=== PATIENT | male | born 1945 | race Caucasian/White ===

== ENCOUNTER 2020-08-12 01:52 | Outpatient (CLI) | payer MEDICARE, SELFPAY ==
[2020-08-12 18:37] LABS: SARS-CoV-2 RNA PCR Negative
== END 2020-08-12 01:53 | disposition home or self-care (01) ==
LOC: ANHCOVIDDT 01:52
PROVIDERS: PCP Family Medicine; Visit Provider Internal Medicine Gastroenterology
DX: Z01.812 Encounter for preprocedural laboratory examination (principal); Z20.822 Contact with and (suspected) exposure to COVID-19
CPT/HCPCS: C9803; U0003; U0005

== ENCOUNTER 2020-08-15 00:42 | Day surgery (SDC) | payer MEDICARE, SELFPAY ==
[2020-08-01 11:20] VITALS: BMI 30.5
[2020-08-15 08:04] VITALS: BP 143/79; PULSE 63; RESP 16; TEMP 36.3; O2SAT 63; BMI 30.3
[2020-08-15] MEDS: LACTATED RINGERS 1,000 ML 150 ML IV CONT (08:23)
[2020-08-15 08:28] LABS: Glucose Point of Care 162 (65-105)
--- NOTE | 2020-08-15 08:40 | WPDANESEPPF ---
Anes - Initial Pre Proc Eval Procedure: Operation Date: 08/15/20 08:30 Proposed Procedures p Screening Colonoscopy - Cesar Woodson MD Date/Time: 08/15/20 08:40 Surgeon: Cesar Woodson MD Pre Op Diagnosis: neoplasm screening Patient Data Age: 75 Gender: M Height: 6 ft 1 in Weight: 104.3 kg Last Vital Signs Temp 97.4 F L 08/15/20 08:04 Pulse 63 08/15/20 08:04 Resp 16 08/15/20 08:04 BP 143/79 H 08/15/20 08:04 Pulse Ox 63 L 08/15/20 08:04 Allergies Allergy/AdvReac Type Severity Reaction Status Date / Time Sulfa (Sulfonamide Allergy Intermediate Hives Verified 08/15/20 08:02 Antibiotics) acetaminophen AdvReac Mild COUGHING Verified 08/15/20 08:02 Home Medications Medication Instructions Recorded Confirmed Type loratadine 10 mg tablet 10 mg PO DAILY 07/12/19 08/01/20 History simvastatin 40 mg tablet 40 mg PO DAILY #90 tablet 05/01/20 08/15/20 Rx sodium,potassium,mag sulfates 17.5 See Rx Instructions PO .COMPLEX 06/30/20 Rx gram-3.13 gram-1.6 gram oral soln #354 ml metformin 500 mg tablet 1,000 mg PO BID #360 tablet 07/07/20 08/15/20 Rx Laboratory Tests 08/15/20 08:09 POC Capillary Glucose 162 mg/dl H mg/dl (65-105) Patient hx anesthesia problems: none Family hx anesthesia problems: none PMFSH Past Medical History Medical History (Updated 08/15/20 @ 08:45 by Cesar Woodson MD) Colon polyp DM w/o complication type II, uncontrolled Erectile dysfunction Pure hypercholesterolemia Family History Family History (Updated 03/21/14 @ 07:13 by DOCTOR UNKNOWN) Father Family history of coronary artery disease Social History Social History (Updated 04/21/20 @ 13:40 by Kary Saucedo) Smoking status: Never smoker Second hand tobacco smoke exposure: No Alcohol intake: never Drinks per week: 1 Substance use: never Substance use type: does not use Living arrangements: with family Gender identity (if verbalized by the patient): Male Spiritual care concerns: No Anes - Eval Final PreProcedure Day of Procedure 08/15/20 08:40 Patient weight: overweight Heart: regular rate and rhythm Lungs: clear to auscultation Airway: Mallampati scale class II Neurological: alert and oriented Last oral intake: >/= 8 hours ASA classification: III Emergent: no Anesthetic plan: proceed Anesthesia type and monitoring: general GIVS and standard monitoring Informed Consent: The patient's anesthetic plan and its attendant risks and benefits were discussed with the patient/family/POA. Questions were solicited and answers provided to the satisfaction of the patient/family/POA.
--- NOTE | 2020-08-15 08:44 | PM.HPGS ---
History of Present Illness History of Present Illness Consent: Risks, benefits, and alternatives have been discussed and questions answered. Patient agrees to proceed with procedure. Chief complaint: neoplasm screening Narrative: Black Echols is a 75 year old male with colon polyps 10 years ago, last colonoscopy about 5 years ago. Review of Systems Constitutional: Constitutional: Denies headache(s) and Denies weakness Eyes: Eyes: Denies blurry vision ENT: Reports Normal hearing present, Denies headache(s) and Denies neck pain Cardiovascular: Cardiovascular: Denies chest pain and Denies dyspnea Respiratory: Respiratory: Denies dyspnea Gastrointestinal: Gastrointestinal: Reports no additional gastrointestinal complaints Genitourinary: Genitourinary: Denies dysuria Musculoskeletal: Musculoskeletal: Denies neck pain Integumentary/Breasts: Skin/Breast: Denies dry skin Neurologic: Reports Normal hearing present, Denies headache(s) and Denies weakness Psychiatric: Psychiatric: Denies anxiety Endocrine: Endocrine: Denies change in body appearance Hematologic/Lymphatic: Hematologic/Lymphatic: Denies easy bleeding Allergic/Immunologic: Allergic/Immunologic: Denies urticaria PMFSH Past Medical History Medical History (Updated 08/15/20 @ 08:45 by Cesar Woodson MD) Colon polyp DM w/o complication type II, uncontrolled Erectile dysfunction Pure hypercholesterolemia Family History Family History (Updated 03/21/14 @ 07:13 by DOCTOR UNKNOWN) Father Family history of coronary artery disease Social History Social History (Updated 04/21/20 @ 13:40 by Kary Saucedo) Smoking status: Never smoker Second hand tobacco smoke exposure: No Alcohol intake: never Drinks per week: 1 Substance use: never Substance use type: does not use Living arrangements: with family Gender identity (if verbalized by the patient): Male Spiritual care concerns: No Meds Home Medications and Allergies Home Medications Medication Instructions Recorded Confirmed Type loratadine 10 mg tablet 10 mg PO DAILY 07/12/19 08/01/20 History simvastatin 40 mg tablet 40 mg PO DAILY #90 tablet 05/01/20 08/15/20 Rx sodium,potassium,mag sulfates 17.5 See Rx Instructions PO .COMPLEX 06/30/20 Rx gram-3.13 gram-1.6 gram oral soln #354 ml metformin 500 mg tablet 1,000 mg PO BID #360 tablet 07/07/20 08/15/20 Rx Allergies Allergy/AdvReac Type Severity Reaction Status Date / Time Sulfa (Sulfonamide Allergy Intermediate Hives Verified 08/15/20 08:02 Antibiotics) acetaminophen AdvReac Mild COUGHING Verified 08/15/20 08:02 Vital Signs Vital Signs - 24 hr 08/15/20 08:04 Temperature 97.4 F L Pulse Rate 63 Respiratory Rate 16 Blood Pressure 143/79 H Pulse Oximetry 63 L Exam Const: General: comfortable and no acute distress HENMT: General nose exam: Normal nares present Eyes: General: appearance normal, both eyes and all related structures Neck: Neck: no JVD Resp: Auscultation: clear to auscultation bilaterally Cardio: Rate: regular rate Rhythm: regular rhythm GI: Inspection: non-distended GI Palp: Yes Soft to palpation Skin: General skin exam: normal color Neuro: General: gait normal Speech: normal speech Extrem: General: normal to inspection Psych: Mental Status: mental status grossly normal Assessment and Plan Assessment and plan (1) Colon polyp: Code(s): K63.5 - Polyp of colon Status: Acute Assessment and Plan: will proceed with colonoscopy
[2020-08-15 09:09] VITALS: BP 106/54; PULSE 58; RESP 16; O2SAT 97
[2020-08-15 09:19] VITALS: BP 135/77; PULSE 57; RESP 18; O2SAT 96
[2020-08-15 09:29] VITALS: BP 138/81; PULSE 58; RESP 22; O2SAT 96
== END 2020-08-15 09:44 | disposition home or self-care (01) ==
PROVIDERS: PCP Family Medicine; Visit Provider Internal Medicine Gastroenterology
PROC: 0DJD8ZZ Inspection of Lower Intestinal Tract, Via Natural or Artificial Opening Endoscopic (ICD-10-PCS; CPT 45378; principal; 2020-08-15 08:30)
DX: Z12.11 Encounter for screening for malignant neoplasm of colon (principal); K57.30 Diverticulosis of large intestine without perforation or abscess without bleeding; K64.8 Other hemorrhoids; Z86.010 Personal history of colon polyps; E11.9 Type 2 diabetes mellitus without complications; E78.00 Pure hypercholesterolemia, unspecified; Z79.84 Long term (current) use of oral hypoglycemic drugs
CPT/HCPCS: G0105; C9803; J2704; J7120; U0003; U0005

== ENCOUNTER 2024-12-25 16:43 | Outpatient (CLI) | payer MEDICARE, SELFPAY ==
[2024-12-25 17:09] LABS: Basophils Percent Auto 0.6 % (0.2-1.2); Eosinophils Percent Auto 0.4 % (0-4.4); Hematocrit 41.6 % (42.0-52.0); Hemoglobin 13.8 g/dL (14.0-18.0); Immature Granulocyte Absolute 0.02 K/mm3 (0.00-0.031); Immature Granulocyte Percent A 0.4 % (0-0.5); Immature Platelet Fraction Pct 3.4 % (0.9-11.2); Lymphocytes Absolute Auto 1.54 K/mm3 (0.9-3.2); Lymphocytes Percent Auto 29.2 % (18.3-44.2); Mean Corpuscular HGB Conc 33.2 g/dl (32-36); Mean Corpuscular Hemoglobin 31.6 pg (26-34); Mean Corpuscular Volume 95.2 fl (80-100); Mean Platelet Volume 9.9 fl (7.4-10.4); Monocytes Absolute Auto 0.3 K/mm3 (0.1-0.6); Monocytes Percent Auto 6.3 % (2.6-8.5); Neutrophils Absolute Auto 3.3 K/mm3 (1.3-6.7); Neutrophils Percent Auto 63.1 % (45.5-73.1); Platelet Count Result 142 k/mm3 (150-375); Red Blood Count 4.37 M/mm3 (4.6-6.20); Red Cell Distribution Width 12.8 % (11.5-14.5); White Blood Count 5.3 K/mm3 (4.5-10.0)
[2024-12-25 17:15] LABS: Alanine Aminotransferase 34 U/L (6-50); Albumin Level 4.8 g/dL (3.5-5.1); Alkaline Phosphatase 29 U/L (38-126); Anion Gap 9 mmol/L (4-12); Aspartate Amino Transferase 41 U/L (17-59); Blood Urea Nitrogen 14 mg/dL (9-20); Calcium 9.6 mg/dL (8.4-10.2); Carbon Dioxide 27 mmol/L (22-30); Chloride 102 mmol/L (98-107); Estimated Glomerular Filt Rate > 60; Glucose 198 mg/dL (65-110); Lipase 94 U/L (23-300); Potassium 3.9 mmol/L (3.4-5.0); Sodium 138 mmol/L (137-145); Total Protein 7.5 g/dL (6.3-8.2)
[2024-12-25 17:29] LABS: Add Urine Microscopic? YES; Appearance Urine Clear (Clear); Bacteria Urine None Seen /hpf; Bilirubin Urine Negative (Negative); Blood Urine Negative (Negative); Color Urine Dark Yellow (Yellow); Glucose Urine UA Negative (Negative); Ketones Urine 1+ mg/dL (Negative); Leukocyte Esterase Ur Negative LEU/UL (Negative); Nitrate Urine Negative (Negative); Non Pathogenic Casts 0-2; Protein Urine Trace mg/dL (Negative); RBC Urine 0-2 /hpf (0-2); Specific Grav Ur 1.029 (1.001-1.035); Squamous Epithelial Cell Urine None Seen /hpf (Few); WBC Urine 0-5 /hpf (0-3); pH Urine 5.5 (5.0-9.0)
== END 2024-12-25 16:44 | disposition home or self-care (01) ==
LOC: ANHLAB 16:47
PROVIDERS: PCP Family Medicine; Visit Provider Physician Assistant
DX: R11.0 Nausea (principal); R53.1 Weakness
CPT/HCPCS: 36415; 80053; 81001; 83690; 85025; 85055

== ENCOUNTER 2025-01-02 14:07 | Outpatient (CLI) | payer MEDICARE, SELFPAY ==
--- NOTE | ~2025-01-02 | CT_ITS ---
Non-contrast Head CT History: Dizziness and giddiness Technique: Axial non-contrast imaging of the brain was performed. Dose reduction technique was used on this scan by utilizing automated exposure control and iterative reconstruction technique. The dose -length product (DLP) was 605.33 mGy-cm. Findings: There is no evidence of intracranial hemorrhage, mass lesion, or acute infarct. Probable m inimal chronic microvascular ischemic changes in the periventricular white matter. The ventricles an d subarachnoid spaces are normal in size. The calvarium appears normal. The visualized paranasal si nuses and mastoid air cells are clear. Impression: No acute abnormality seen. Probable minimal chronic microvascular ischemic change in the periventricular white matter. Reviewed, dictated and finalized at location M. Impression: No acute abnormality seen. Probable minimal chronic microvascular ischemic change in the periventricular w lupe matter.
== END 2025-01-02 14:08 | disposition home or self-care (01) ==
PROVIDERS: PCP Family Medicine; Visit Provider Physician Assistant
DX: R42 Dizziness and giddiness (principal); R26.81 Unsteadiness on feet; R53.1 Weakness
CPT/HCPCS: 70450